=== PATIENT | male | born 1950 | race Caucasian/White ===

== ENCOUNTER → 2017-04-18 | Outpatient (CLI) | payer OTHER ==
--- NOTE | 2017-04-19 09:51 | PCVCIMAG ---
APPROVED REPORT Exam: Stress Echocardiogram Indication: Hyperlipidemia, Hypertension Stress Nurse: Alejandra Lamas RN Status: routine Ht: 6 ft 1 in HR: 114 bpm BP: 150/90 mmHg Rhythm: NSR Procedure The patient underwent an Exercise Stress Test using the Chuy Protocol. Blood pressure, heart rate, and EKG were monitored. An Echocardiogram was performed by hazardous materials waste technician in four stages in quad fashion. At peak stress, four selected images were obtained and placed side by side with resting images for comparison. Stress Test Details Stress Test: Exercise stress testing was performed using a Chuy protocol. HR Resting HR: 114 bpmMax Heart Rate (APMHR): 154 bpm Max HR Achieved: 160 bpmTarget HR (85% APMHR): 130 bpm % of APMHR: 103 HR response to stress: Normal HR response to stress BP Resting BP: 150/90 mmHg Max BP: 210/104 mmHg ECG Resting ECG: Sinus Rhythm Stress ECG: Sinus Rhythm Clinical Reason for Termination: Maximal effort Exercise duration: 6 min 16 sec Highest Stage Achieved: Stage 2: 2.5 mph at 12% grade. Exercise capacity: 7.70 METs Overall Exercise Capacity for Age: Poor Pre-Stress Echo The resting Echocardiogram showed normal left ventricular contractility with an estimated Ejection Fraction of about 55-60%. Normal wall motion in all segments on baseline images. Post-Stress Echo The stress Echocardiogram showed normal left ventricular contractility with an estimated Ejection Fraction of about 60-65%. Normal augmentation of wall motion in all segments on post stress images. Clinical No clinical or ECG evidence for ischemia. Conclusion Clinical Response: Non-ischemic Exercise Capacity: Below Average Stress ECG Response: Non-ischemic Stress Echo Images: Non-ischemic The left ventricle is normal in size and wall thickness in both the rest and stress images. hypertensive response bystolic [id number] Other Information Study Quality: Adequate <Conclusion> The left ventricle is normal in size and wall thickness in both the rest and stress images. hypertensive response bystolic [id number]
== END | disposition home or self-care (01) ==
LOC: PCVCIMAG 16:51
PROVIDERS: ATTEND Internal Medicine Cardiovascular Disease
DX: I10 Essential (primary) hypertension (principal); R07.9 Chest pain, unspecified; E11.9 Type 2 diabetes mellitus without complications; E78.00 Pure hypercholesterolemia, unspecified
CPT/HCPCS: 93005; 93325; 93351; G0463

== ENCOUNTER → 2018-12-18 | Outpatient (CLI) | payer MEDICARE | END | disposition home or self-care (01) | LOC: PCVCCLINIC 13:00 | PROVIDERS: ATTEND Internal Medicine Cardiovascular Disease | DX: E78.5 Hyperlipidemia, unspecified (principal); I10 Essential (primary) hypertension; I25.10 Atherosclerotic heart disease of native coronary artery without angina pectoris; E78.00 Pure hypercholesterolemia, unspecified; R93.1 Abnormal findings on diagnostic imaging of heart and coronary circulation; E11.9 Type 2 diabetes mellitus without complications; F17.200 Nicotine dependence, unspecified, uncomplicated; G47.33 Obstructive sleep apnea (adult) (pediatric); Z99.89 Dependence on other enabling machines and devices; Z82.49 Family history of ischemic heart disease and other diseases of the circulatory system; Z88.0 Allergy status to penicillin; Z79.899 Other long term (current) drug therapy; Z72.89 Other problems related to lifestyle | CPT/HCPCS: 36415; 80061; 93005; G0463 ==

== ENCOUNTER → 2019-04-03 | Outpatient (CLI) | payer MEDICARE ==
--- NOTE | 2019-04-03 14:18 | PCVCIMAG ---
APPROVED REPORT Study performed: 04/03/2019 12:27:02 Exam: Stress Echocardiogram Indication: elevated coronary calcium score, htn, hlp, fam hx cad, dm Patient Location: Echo lab Stress Nurse: Sophia Salas RN Status: routine Ht: 6 ft 2 in HR: 96 bpm BP: 140/76 mmHg Rhythm: NSR Procedure The patient underwent an Exercise Stress Test using the Chuy Protocol. Blood pressure, heart rate, and EKG were monitored. An Echocardiogram was performed by golf technician in four stages in quad fashion. At peak stress, four selected images were obtained and placed side by side with resting images for comparison. Stress Test Details Stress Test: Exercise stress testing was performed using a Chuy protocol. HR Resting HR: 96 bpmMax Heart Rate (APMHR): 152 bpm Max HR Achieved: 141 bpmTarget HR (85% APMHR): 129 bpm % of APMHR: 92 Recovery HR: 105 bpm HR response to stress: Normal HR response to stress BP Resting BP: 140/76 mmHg Max BP: 175/78 mmHg Recovery BP: 146/78 mmHg BP response to stress: Normal blood pressure response to stress. ECG Resting ECG: Sinus Rhythm Stress ECG: Sinus Rhythm ST Change: Normal Arrhythmia: isolated PVCs Recovery ECG: Sinus Rhythm Recovery ST Change: Normal Recovery Arrhythmia: PVC Clinical Reason for Termination: Maximal effort Stress Symptoms: Dyspnea Exercise duration: 5 min 5 sec Highest Stage Achieved: Stage 2: 2.5 mph at 12% grade. Exercise capacity: 7 METs Overall Exercise Capacity for Age: Normal Scale: Sedentary Angina Score: None Pre-Stress Echo The resting Echocardiogram showed normal left ventricular contractility with an estimated Ejection Fraction of about 50-55%. The resting echocardiogram demonstrated normal wall motion in all wall segments. Post-Stress Echo The stress Echocardiogram showed normal left ventricular contractility with an estimated Ejection Fraction of about 60-65%. Compared to rest, there were no stress-induced wall motion abnormalities. Clinical No clinical or ECG evidence for ischemia. Conclusion Clinical Response: Non-ischemic Exercise Capacity: Average Stress ECG Response: Non-ischemic Stress Echo Images: Non-ischemic The left ventricle is normal in size and mild LVH in both the rest and stress images. Normal color doppler. No regurgitation or stenosis present on pulmonic, mitral, tricuspid and aortic valves. Aortic sclerosis without stenosis. Other Information Study Quality: Adequate <Conclusion> The left ventricle is normal in size and mild LVH in both the rest and stress images. Normal color doppler. No regurgitation or stenosis present on pulmonic, mitral, tricuspid and aortic valves. Aortic sclerosis without stenosis.
== END | disposition home or self-care (01) ==
LOC: PCVCIMAG 12:32
PROVIDERS: ATTEND Internal Medicine Cardiovascular Disease
DX: I25.10 Atherosclerotic heart disease of native coronary artery without angina pectoris (principal); E11.9 Type 2 diabetes mellitus without complications; R93.1 Abnormal findings on diagnostic imaging of heart and coronary circulation; Z82.49 Family history of ischemic heart disease and other diseases of the circulatory system; F17.200 Nicotine dependence, unspecified, uncomplicated
CPT/HCPCS: 93325; 93351